=== PATIENT | female | born 1975 | race Caucasian/White ===

== ENCOUNTER 2023-09-09 07:52 | Emergency (ER) | payer MEDICAID ==
[~2023-09-09] VITALS: Ht 165.1 cm; Wt 111.0 kg
[2023-09-09 07:54] VITALS: O2SAT 100
[2023-09-09 07:55] VITALS: BP 129/81; PULSE 114; RESP 18
[2023-09-09 08:11] VITALS: TEMP 103
[2023-09-09] MEDS ORDERED: ACETAMINOPHEN 325MG TABLET PO NR (08:15)
[2023-09-09] MEDS ORDERED: KETOROLAC 60MG/2ML VIAL IM STA (11:25)
[2023-09-09] MEDS ORDERED: DEXAMETHASONE 10 MG/ML VIAL IM ONE (11:30)
[2023-09-09] MEDS ORDERED: PENICILLIN G BENZATHINE 1,200,000 UNITS/2ML SYR IM ONE (11:30)
[2023-09-09 12:53] LABS: CLARITY URINE CLOUDY (CLEAR); COLOR URINE YELLOW (YELLOW); GLUCOSE URINE NEGATIVE (NEGATIVE); KETONES URINE NEGATIVE (NEGATIVE); LEUKOCYTE ESTERASE URINE 1+ (NEGATIVE); NITRITE URINE NEGATIVE (NEGATIVE); OCCULT BLOOD URINE 3+ (NEGATIVE); PH URINE 5.5 (4.5-8.0); PROTEIN URINE 2+ (NEGATIVE); SPECIFIC GRAVITY URINE 1.023 (1.005-1.030); UROBILINOGEN URINE 0.2 E.U./dL (0.2-1.0)
[2023-09-09 13:25] LABS: SQUAMOUS EPITHELIAL CELL URINE 2+ /lpf (RARE/1+)
[2023-09-09 13:27] LABS: BACTERIA URINE TRACE
[2023-09-09] MEDS ORDERED: DEXAMETHASONE 10 MG/ML VIAL IM NR (14:16)
[2023-09-09] MEDS ORDERED: KETOROLAC 60MG/2ML VIAL IM NR (14:17)
[2023-09-09] MEDS ORDERED: ONDA4TAB11 PO (15:08)
[2023-09-09] MEDS ORDERED: IBUP-2029 PO (15:08)
[2023-09-09] MEDS ORDERED: AMOX1TAB16 MT (15:08)
== END 2023-09-09 15:32 | disposition home or self-care (01) ==
LOC: ER 08:11
DX: J03.90 Acute tonsillitis, unspecified (principal); Z90.49 Acquired absence of other specified parts of digestive tract; Z98.890 Other specified postprocedural states
CPT/HCPCS: 81003; 81025; 87430; 96372; 99284; J1100; J1885; J0561; Z7610

== ENCOUNTER 2025-01-25 09:10 | Emergency (ER) | payer MEDICAID, OTHER ==
[~2025-01-25] VITALS: Ht 165.1 cm; Wt 117.9 kg
[~2025-01-25 09:10] MED LIST: AMOX1TAB16 MT; IBUP-2029 PO; ONDA-239 PO
[2025-01-25 09:12] VITALS: BP 139/96; TEMP 37.1; O2SAT 100
[2025-01-25 09:14] VITALS: PULSE 81; RESP 16; O2SAT 99
[2025-01-25] MEDS ORDERED: ACET-2708 MT (11:46)
== END 2025-01-25 11:56 | disposition home or self-care (01) ==
LOC: ER 09:10
DX: M25.561 Pain in right knee (principal); I10 Essential (primary) hypertension; Z90.49 Acquired absence of other specified parts of digestive tract; Z98.890 Other specified postprocedural states; Z79.899 Other long term (current) drug therapy
CPT/HCPCS: 73560; 93971; 99284